=== PATIENT | female | born 1960 | race Caucasian/White ===

== ENCOUNTER 2017-06-17 07:46 | Emergency (ER) | payer BC ==
--- NOTE | 2017-06-17 08:00 | EDM.PDOC ---
ED HPI GENERAL MEDICAL PROBLEM - General Chief Complaint: Respiratory Problem Stated Complaint: STUFFY HEAD,SORE THROAT [id number] Time Seen by Provider: 06/17/17 08:00 Source of Information: Reports: Patient, RN, RN Notes Reviewed History Limitations: Reports: No Limitations - History of Present Illness INITIAL COMMENTS - FREE TEXT/NARRATIVE: Pt presents to ER with c/o severe head and throat pain. She states this began last with ear pain, fever on Monday. SHe states she felt better Monday and then became ill again. She admits to cough with some blood tinged sputum at times, fever and chills, sore throat, and SOB at times with cough. Patient states the pain is a 10/10 generalized pressure/ache in the head and throat. She states she took ibuprofen last night, advil sinus, and nyquil. Pt denies N/V/D Onset: Gradual Onset Date: 06/11/17 Location: Reports: Head, Face, Neck Quality: Reports: Ache, Pressure Severity: Severe Improves with: Reports: None Worsens with: Reports: None Associated Symptoms: Reports: Cough, cough w sputum, Fever/Chills, Headaches, Loss of Appetite, Shortness of Breath, Weakness. Denies: Nausea/Vomiting Treatments SUTURE WINDER HAND: Reports: NSAIDS Ear Pain Score (Numeric/FACES): 10 - Related Data Allergies Allergy/AdvReac Type Severity Reaction Status Date / Time Penicillins Allergy Hives Verified 06/17/17 08:08 Home Meds: Home Meds Levothyroxine Sodium [Synthroid] 125 mcg PO DAILY 06/17/17 [History] Lisinopril 1 tab PO DAILY 06/17/17 [History] Multivit &Minerals/Ferrous Fum [Complete Multivit-Mineral] 5 ml PO DAILY [History] Ursodiol 1 tab PO DAILY 06/17/17 [History] azaTHIOprine [Imuran] 1 tab PO DAILY 06/17/17 [History] ED ROS GENERAL - Review of Systems Review Of Systems: ROS reveals no pertinent complaints other than HPI. ED EXAM, GENERAL - Physical Exam Exam: See Below Exam Limited By: No Limitations General Appearance: Alert, WD/WN, Mild Distress Eye Exam: Bilateral Eye: Conjunctival Injection, EOMI Ears: Normal Canal, Hearing Grossly Normal Ear Exam: Bilateral Ear: Tenderness, TM Bulging (Fluid behind tm's bilaterally) Nose: Nasal Tenderness (red around external nares, ) Throat/Mouth: Normal Inspection Head: Atraumatic, Normocephalic Neck: Normal Inspection, Supple, Full Range of Motion, Lymphadenopathy (L), Lymphadenopathy (R) Respiratory/Chest: No Respiratory Distress, Lungs Clear, Normal Breath Sounds, No Accessory Muscle Use, Chest Non-Tender Cardiovascular: Normal Peripheral Pulses, Regular Rate, Rhythm, No Edema, No Gallop, No JVD, No Murmur, No Rub Peripheral Pulses: 2+: Radial (L), Radial (R) GI/Abdominal: Normal Bowel Sounds, Soft, Non-Tender (Female) Exam: Deferred Rectal (Female) Exam: Deferred Back Exam: Normal Inspection, Full Range of Motion Extremities: Normal Inspection, Normal Range of Motion, Non-Tender, No Pedal Edema, Normal Capillary Refill Neurological: Alert, Oriented, CN II-XII Intact, Normal Cognition, Normal Gait, No Motor/Sensory Deficits Psychiatric: Normal Affect, Normal Mood Skin Exam: Warm, Dry, Intact, Normal Color, No Rash Lymphatic: Adenopathy (bilateral anterior cervical lymphadenopathy) Course - Vital Signs Last Recorded V/S: Last Vital Signs Temp 100.3 F 06/17/17 07:58 Pulse 124 H 06/17/17 07:58 Resp 16 06/17/17 07:58 BP 148/82 H 06/17/17 07:58 Pulse Ox 100 06/17/17 07:58 - Orders/Labs/Meds Orders: Active Orders 24 hr Category Date Time Status CULTURE STREP A CONFIRMATION [] Stat Lab 06/17/17 08:00 Results STREP SCRN A RAPID W CULT CONF [] Stat Lab 06/17/17 08:00 Results Labs: Group A Strep: NEGATIVE Influenza A & B: NEGATIVE Departure - Departure Time of Disposition: 08:40 Disposition: Home, Self-Care 01 Condition: Fair Clinical Impression: Sinusitis Qualifiers: Sinusitis location: frontal Chronicity: acute Recurrence: not specified as recurrent Qualified Code(s): J01.10 - Acute frontal sinusitis, unspecified - Discharge Information Instructions: Sinusitis, Adult, [id number], Upper Respiratory Infection, Adult, [id number] Forms: ED Department Discharge Additional Instructions: Rest, Drink plenty of water RX: Magic Mouthwash, Cefdinir, Clindamycin, Cheratussin, Flonase Tylenol as directed for pain and fever Follow up with your primary care provider next week. - My Orders Last 24 Hours: My Active Orders 06/17/17 08:00 CULTURE STREP A CONFIRMATION [RM] Stat STREP SCRN A RAPID W CULT CONF [RM] Stat - Assessment/Plan Last 24 Hours: My Active Orders 06/17/17 08:00 CULTURE STREP A CONFIRMATION [RM] Stat STREP SCRN A RAPID W CULT CONF [] Stat
== END 2017-06-17 08:49 | disposition home or self-care (01) ==
LOC: DL.ED 07:46
DX: J01.10 Acute frontal sinusitis, unspecified (principal); Z88.0 Allergy status to penicillin; Z79.899 Other long term (current) drug therapy
CPT/HCPCS: 87081; 87430; 87804; 99283

== ENCOUNTER 2023-11-29 19:55 | Emergency (ER) | payer BC ==
[2023-11-29] MEDS ORDERED: Proparacaine 0.5% Ophth Soln 15 ML Bottle EYERT STA (20:59)
[2023-11-29] MEDS ORDERED: Proparacaine 0.5% Ophth Soln 15 ML Bottle ONE ×2 (21:06→21:12)
[2023-11-29] MEDS ORDERED: Fluorescein 1 MG Ophth Strip ONE (21:06)
[2023-11-29] MEDS ORDERED: Tetracaine HCl/PF 0.5% 4 ML Bottle EYELF ONE (21:10)
[2023-11-29] MEDS: Proparacaine 0.5% Ophth Soln 15 ML Bottle EYELF STA (21:19)
[2023-11-29] MEDS: Fluorescein 1 MG Ophth Strip EYELF ONE (21:20)
== END 2023-11-29 21:25 | disposition home or self-care (01) ==
LOC: DL.ED 19:55
DX: S05.02XA Injury of conjunctiva and corneal abrasion without foreign body, left eye, initial encounter (principal); I10 Essential (primary) hypertension; Z90.49 Acquired absence of other specified parts of digestive tract; Z79.890 Hormone replacement therapy; Z79.899 Other long term (current) drug therapy; Z88.0 Allergy status to penicillin; W26.8XXA Contact with other sharp object(s), not elsewhere classified, initial encounter
CPT/HCPCS: 99282; 99283; J3490

== ENCOUNTER 2024-04-06 21:45 | Emergency (ER) | payer BC ==
[2024-04-06] MEDS: Fluorescein 1 MG Ophth Strip EYELF ONE (22:40)
[2024-04-06] MEDS: Fluorescein 1 MG Ophth Strip ONE (22:40)
[2024-04-06] MEDS: Proparacaine 0.5% Ophth Soln 15 ML Bottle EYELF STA (22:40)
[2024-04-06] MEDS: Ketorolac 30 MG/ML SDV IM ONE (23:37)
[2024-04-06] MEDS: Erythromycin Base 0.5% Ophth Oint 3.5 GM Tube EYELF ONE (23:37)
== END 2024-04-06 23:48 | disposition home or self-care (01) ==
LOC: DL.ED 21:45
DX: S05.02XA Injury of conjunctiva and corneal abrasion without foreign body, left eye, initial encounter (principal); I10 Essential (primary) hypertension; Z90.49 Acquired absence of other specified parts of digestive tract; Z79.890 Hormone replacement therapy; Z79.899 Other long term (current) drug therapy; Z88.0 Allergy status to penicillin; X58.XXXA Exposure to other specified factors, initial encounter
CPT/HCPCS: 96372; 99283; A9270; J1885; J3490